=== PATIENT | female | born 1970 | race Caucasian/White ===

== ENCOUNTER 2019-03-04 21:15 | Observation (INO) | payer OTHER ==
[~2019-03-04] VITALS: Ht 167.6 cm; Wt 94.5 kg
--- NOTE | 2019-03-04 21:35 | PHYS DOC ---
Past History Past Medical History: Other Past Surgical History: No Surgical History Alcohol Use: Occasionally Drug Use: None Adult General Chief Complaint Chief Complaint: SHORTNESS OF BREATH HPI HPI Patient is a 48-year-old female presenting with shortness of breath with minimal exertion over the last week tonight she was sitting after dinner had sudden onset of chest pressure also burning sensation center of the chest radiated to the shoulder blades and also down the left arm. The pain is better but she still feel short of breath especially with minimal exertion. She is worried because her dad had a heart attack at age 51. She denies previous history of venous thromboembolic disease. 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 she says she thinks she has stress test about 4 years ago Review of Systems Review of Systems Constitutional: Denies fever or chills [] Eyes: Denies change in visual acuity, redness, or eye pain [] Mild cough GI: She did have nausea with the pain earlier : Denies dysuria or hematuria [] Musculoskeletal: Denies back pain or joint pain [] Integument: Denies rash or skin lesions [] Neurologic: Denies headache, focal weakness or sensory changes [] Endocrine: Denies polyuria or polydipsia [] All other systems were reviewed and found to be within normal limits, except as documented in this note. Allergies Allergies Allergies Coded Allergies Type Severity Reaction Last Updated Verified No Known Drug Allergies 01/31/15 No Physical Exam Physical Exam Constitutional: Well developed, well nourished, no acute distress, non-toxic appearance. [] HENT: Normocephalic, atraumatic, bilateral external ears normal, oropharynx moist, no oral exudates, nose normal. [] Eyes: PERRLA, EOMI, conjunctiva normal, no discharge. [] Neck: Normal range of motion, no tenderness, supple, no stridor. [] Cardiovascular:Heart rate regular rhythm, no murmur [] Lungs & Thorax: Bilateral breath sounds clear to auscultation [] Abdomen: Bowel sounds normal, soft, no tenderness, no masses, no pulsatile masses. [] Skin: Warm, dry, no erythema, no rash. [] Back: No tenderness, no CVA tenderness. [] Extremities: No tenderness, no cyanosis, no clubbing, ROM intact, no edema. [] Neurologic: Alert and oriented X 3, normal motor function, normal sensory function, no focal deficits noted. [] Psychologic: Affect normal, judgement normal, mood normal. [] EKG EKG EKG shows a normal sinus rhythm with a rate of 90 QTC 454 no ischemia no STEMI interpreted by me time of encounter[] Radiology/Procedures Radiology/Procedures [] Impressions: IMPRESSION: No pulmonary embolus identified within the main, lobar or proximal segmental pulmonary arteries. Limitations as described above. Exposure: One or more of the following in the visualized dose reduction techniques were utilized for this examination: 1. Automated exposure control 2. Adjustment of the MA and/or KV according to patient size 3. Use of iterative of reconstructive technique Electronically signed by: Elham Paris MD (03/04/2019 11:14 PM) [facility] DICTATED AND SIGNED BY: ELHAM PARIS MD DATE: 03/04/19 [id number] CC: LUI MAIER; SWETHA AGOSTO MD ~ Course & Med Decision Making Course & Med Decision Making Pertinent Labs and Imaging studies reviewed. (See chart for details) []Heart score is a 4 Overall story is somewhat concerning however patient is young and has a risk factor of family history. As well as obesity. Differential would include PE so we'll start with a d-dimer --> ct chest no pe seen see final report I talked to the patient about options including admission overnight for observation and stress testing versus close outpatient follow-up she prefers the former which I think is reasonable given the heart score. admit to xochitl serial troponins overnight aspirin in the er. no chest pain while here. Dragon Disclaimer Dragon Disclaimer This electronic medical record was generated, in whole or in part, using a voice recognition dictation system. Departure Departure: Impression: Primary Impression: Chest pain Disposition: ADMITTED INPATIENT Admitting Physician: Birgit Solorio Condition: STABLE Referrals: NON,STAFF (PCP) SWETHA AGOSTO MD Mar 04, 2019 21:35
[2019-03-04] MEDS ORDERED: ASPIRIN 81 MG TAB.CHEW PO ONE (21:45)
[2019-03-04 21:53] LABS: BASO # 0.1 x10^3/uL (0.0-0.2); BASO % 1 % (0-3); EOS # 0.2 x10^3/uL (0.0-0.7); EOS % 2 % (0-3); HEMOGLOBIN 10.4 g/dL (12.0-15.5); LYMPH % 30 % (24-48); MEAN CORPUSCULAR HEMOGLOBIN 26 pg (25-35); MEAN CORPUSCULAR HGB CONC 32 g/dL (31-37); MEAN CORPUSCULAR VOLUME 81 fL (79-100); MONO # 0.7 x10^3/uL (0.0-1.1); MONO % 7 % (0-9); NEUT # 5.9 x10^3uL (1.8-7.7); NEUT % 60 % (31-73); PLATELET COUNT 391 x10^3/uL (140-400); RED BLOOD COUNT 4.07 x10^6/uL (3.50-5.40); RED CELL DISTRIBUTION WIDTH 16.3 % (11.5-14.5); WHITE BLOOD COUNT 9.9 x10^3/uL (4.0-11.0)
--- NOTE | 2019-03-04 21:53 | EKG ---
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
[2019-03-04 22:00] LABS: CALCIUM 8.8 mg/dL (8.5-10.1); CREATININE 0.7 mg/dL (0.6-1.0); GFR 90.1; POTASSIUM 4.1 mmol/L (3.5-5.1)
[2019-03-04 22:09] LABS: ALBUMIN 3.7 g/dL (3.4-5.0); TOTAL BILIRUBIN 0.2 mg/dL (0.2-1.0); TOTAL PROTEIN 7.5 g/dL (6.4-8.2)
[2019-03-04] MEDS ORDERED: CONTRAST GIVEN MC PRN (22:45)
[2019-03-04] MEDS: NITROGLYCERIN SUBLINGUAL 0.4 MG BOTTLE OF 25. SL PRN (22:50)
[2019-03-04] MEDS ORDERED: IOHEXOL 350 MG/ML 100 ML VIAL. IV ONE (23:00)
--- NOTE | 2019-03-04 23:01 | RAD ---
Study: CHEST AP ONLY Indication: Shortness of breath. Comparison: 01/31/2015 Findings: Unremarkable cardiomediastinal silhouette and cesar. No lobar infiltrate, pleural effusion or pneumothorax. Potential prior distal clavicular resection/subacromial decompression on the right. No acute osseous abnormality. Impression: No acute radiographic abnormality of the chest. Electronically signed by: RAJIV SANTIAGO MD (03/04/2019 10:58 PM) [facility]
--- NOTE | 2019-03-04 23:17 | RAD ---
Exam: CT of chest with contrast INDICATION: Chest pain, short of air TECHNIQUE: Sequential axial images through the chest obtained following the administration of 100 mL of Omni 350 IV contrast. Sagittal and coronal reformatted images were reconstructed from the axial data and reviewed. 3-D reformatted images were reconstructed from the axial data and reviewed. Comparisons: None FINDINGS: Visualized portions of the thyroid are unremarkable. No enlarged mediastinal lymph nodes. Heart size is normal. No pericardial effusion. Thoracic aorta has a normal course and caliber. Pulmonary artery is not enlarged. No pulmonary embolus identified within the main, lobar or proximal segmental pulmonary arteries. Evaluation of the distal arteries is limited secondary to contrast bolus timing. Airways are patent. No consolidation or pneumothorax. No suspicious lung nodules are identified. No pleural effusion or thickening. Visualized upper abdomen is unremarkable. No suspicious osseous lesions or acute fractures. IMPRESSION: No pulmonary embolus identified within the main, lobar or proximal segmental pulmonary arteries. Limitations as described above. Exposure: One or more of the following in the visualized dose reduction techniques were utilized for this examination: 1. Automated exposure control 2. Adjustment of the MA and/or KV according to patient size 3. Use of iterative of reconstructive technique Electronically signed by: Elham Eddy MD (03/04/2019 11:14 PM) [facility]
[2019-03-05 00:33] VITALS: BP 116/76
--- NOTE | 2019-03-05 01:19 | NUR ---
The patient, MARICHUY REIS, 48 y/o, F admitted by DAMIAN SINHA MD, was given written information regarding hospital policies, unit procedures and contact persons. Valuables were checked and noted. PT presented to the ER with complaints of chest pain. PT had been having SOB x1 week, chest pain since dinner on DOA. PT has strong paternal FH of cardiac problems. PT admitted for rule out. PT transported via EMS, walked to bed safely. present at time of admission. PT oriented to unit. Reviewed with PT and her PMH, PSH, SH, FH and medications. PT states she is only on Synthroid at this time. 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
[2019-03-05] MEDS ORDERED: LEVO200T PO (01:28)
[2019-03-05 06:15] VITALS: BP 95/63
[2019-03-05] MEDS ORDERED: LEVOTHYROXINE 100 MCG TABLET PO SCH (08:00)
--- NOTE | 2019-03-05 08:22 | PDOC2 ---
CARDIAC CONSULT DATE OF CONSULT Date Of Consult DATE: 03/05/19 TIME: 08:20 REASON FOR CONSULT Reason for Consult Chest pain REFERRING PHYSICIAN Referring Physician Dr. Solorio SOURCE Source: Chart review, Patient HPI History of Present Illness This is a 48 yo female who presented secondary to shortness of breath and chest pain. Patient reports she has been experiencing shortness of breath with exertion for the last week. Last night after dinner, began having pressure in her central chest. Initially felt like it was GERD so she took Tums, which did not improved the pain. Started having pain in her upper back and down her left arm. [place] slightly nauseated. Not specifically short of breath with the pain. No dizziness, diaphoresis, or palpitations. Pain persisted so she decided to come to the ED for further evaluation and treatment. Pain relieved with nitro in ED. A couple of days ago, started having hives in her hands and mild swelling in her hands and feet. Hives have resolved. No new products that she can think of. Has a history of GERD. Started taking omeprazole about 3 months which resolved her symptoms. She discontinued taking this about 3-4 weeks ago. Also reports significantly increased stress here recently. 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 PAST MEDICAL HISTORY GI: GERD Heme/Onc: Cancer (thyroid ) Psych: Anxiety, Depression PAST SURGICAL HISTORY Past Surgical History: Other (thyroidectomy, right shoulder surgery, cholecystectomy, breast augmentation) FAMILY HISTORY Family History: Coronary Artery Disease, High Cholestrol SOCIAL HISTORY Smoke: No ALCOHOL: none Drugs: None Lives: with Family CURRENT MEDICATIONS Current Medications Current Medications Aspirin (Children'S Aspirin) 324 mg 1X ONCE PO Last administered on 03/04/19at 21:40; Start 03/04/19 at 21:45; Stop 03/04/19 at 21:46; Status DC Nitroglycerin (Nitrostat) 0.4 mg PRN Q5MIN PRN SL CHEST PAIN Last administered on 03/04/19at 22:50; Start 03/04/19 at 22:30; Stop 03/05/19 at 22:29 Iohexol (Omnipaque 350 Mg/ml) 100 ml 1X ONCE IV Last administered on 03/04/19at 22:53; Start 03/04/19 at 23:00; Stop 03/04/19 at 23:01; Status DC Info (Do NOT chart on this entry -- for MONITORING) 1 each PRN DAILY PRN MC SEE COMMENTS; Start 03/04/19 at 22:45; Stop 03/06/19 at 22:44 Levothyroxine Sodium (Synthroid) 200 mcg DAILY06 PO Last administered on 03/05/19at 08:18; Start 03/05/19 at 08:00 Active Scripts Active Reported Synthroid (Levothyroxine Sodium) 200 Mcg Tablet 200 Mcg PO DAILY06 ALLERGIES Allergies: Coded Allergies: No Known Drug Allergies (Unverified , 01/31/15) ROS Review of Systems 14 point ROS conducted with pertinent positives noted above in HPI PHYSICAL EXAM General: Alert, Oriented X3, Cooperative, No acute distress HEENT: Atraumatic, Mucous membr. moist/pink Lungs: Clear to auscultation, Normal air movement Heart: Regular rate, Normal S1, Normal S2, No murmurs Abdomen: Soft, No tenderness Extremities: No edema, Normal pulses Skin: No rashes, No breakdown Neuro: Normal speech, Cranial nerves 3-12 NL Psych/Mental Status: Mental status NL, Mood NL MUSCULOSKELETAL: Osteoarthritic changes both hands VITALS Vital Signs Vital Signs Date Time Temp Pulse Resp B/P (MAP) Pulse Ox O2 Delivery O2 Flow Rate FiO2 03/05/19 06:15 98.0 72 18 95/63 (74) 97 Room Air LABS LABS Laboratory Tests Test 03/04/19 21:20 03/04/19 21:21 03/05/19 00:55 03/05/19 04:30 White Blood Count 9.9 x10^3/uL (4.0-11.0) Red Blood Count 4.07 x10^6/uL (3.50-5.40) Hemoglobin 10.4 g/dL (12.0-15.5) Hematocrit 33.0 % (36.0-47.0) Mean Corpuscular Volume 81 fL (79-100) Mean Corpuscular Hemoglobin 26 pg (25-35) Mean Corpuscular Hemoglobin Concent 32 g/dL (31-37) Red Cell Distribution Width 16.3 % (11.5-14.5) Platelet Count 391 x10^3/uL (140-400) Neutrophils (%) (Auto) 60 % (31-73) Lymphocytes (%) (Auto) 30 % (24-48) Monocytes (%) (Auto) 7 % (0-9) Eosinophils (%) (Auto) 2 % (0-3) Basophils (%) (Auto) 1 % (0-3) Neutrophils # (Auto) 5.9 x10^3uL (1.8-7.7) Lymphocytes # (Auto) 3.0 x10^3/uL (1.0-4.8) Monocytes # (Auto) 0.7 x10^3/uL (0.0-1.1) Eosinophils # (Auto) 0.2 x10^3/uL (0.0-0.7) Basophils # (Auto) 0.1 x10^3/uL (0.0-0.2) D-Dimer (Zulema) 0.61 mg/L (0.00-0.50) Sodium Level 140 mmol/L (136-145) Potassium Level 4.1 mmol/L (3.5-5.1) Chloride Level 102 mmol/L (98-107) Carbon Dioxide Level 27 mmol/L (21-32) Anion Gap 11 (6-14) Blood Urea Nitrogen 14 mg/dL (7-20) Creatinine 0.7 mg/dL (0.6-1.0) Estimated GFR (Cockcroft-Gault) 90.1 BUN/Creatinine Ratio 20 (6-20) Glucose Level 88 mg/dL (70-99) Calcium Level 8.8 mg/dL (8.5-10.1) Total Bilirubin 0.2 mg/dL (0.2-1.0) Aspartate Amino Transf (AST/SGOT) 23 U/L (15-37) Alanine Aminotransferase (ALT/SGPT) 31 U/L (14-59) Alkaline Phosphatase 71 U/L (46-116) Troponin I Quantitative < 0.017 ng/mL (0-0.055) < 0.017 ng/mL (0-0.055) < 0.017 ng/mL (0-0.055) FQ-Mvd-I-Type Natriuretic Peptide 42 pg/mL (0-124) Total Protein 7.5 g/dL (6.4-8.2) Albumin 3.7 g/dL (3.4-5.0) Albumin/Globulin Ratio 1.0 (1.0-1.7) Maternal Serum HCG Beta Subunit < 1 mIU/mL (0-6) ASSESSMENT/PLAN Assessment/Plan 1. Chest pain, mixed features. AMI ruled out. EKG without significant acute changes. Possible GI in nature 2. GERD; previously taking omeprazole, but discontinued about a month ago. 3. Thyroid cancer; s/p thyroidectomy 4. Anxiety, depression. Reports significant increased life stressors recently 5. Family h/o premature CAD Recommendations Lipids, TSH ASA PPI Echo to assess LV systolic function Will arrange for outpatient stress test and follow up 04/15/19 at 1:30pm at [facility] location. VIOLETTA WILLARD APRN Mar 05, 2019 08:22
[2019-03-05] MEDS ORDERED: ASPIRIN ENTERIC COATED 81 MG TABLET.DR. PO SCH (09:00)
[2019-03-05] MEDS: NITROGLYCERIN SUBLINGUAL 0.4 MG BOTTLE OF 25. SL PRN (10:01)
[2019-03-05 10:06] VITALS: BP 129/81
--- NOTE | 2019-03-05 10:23 | NUR ---
Pt c/o chest pain 09/27 spreading to "in between shoulder blades". Pain relieved with 1 dose of sublingual nitroglycerin, pt refused another dose. MD called; orders for stat repeat EKG and stat repeat troponin ordered. Vital signs stable at this time.
[2019-03-05] MEDS ORDERED: ONDANSETRON PF 4 MG/2 ML VIAL. IVP PRN (10:30)
--- NOTE | 2019-03-05 10:49 | NUR ---
Pt now reporting pain only in shoulder blades at 04/27. PRN medicated for nausea with relief noted. Pt resting in bed, spouse at bedside.
--- NOTE | 2019-03-05 13:36 | EKG ---
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 (Measurements might be questionable) RI6.02 Compared to ECG 04/17/2008 17:08:16 Sinus rhythm no longer present
[2019-03-05 14:29] VITALS: BP 106/71
--- NOTE | 2019-03-05 18:12 | CARD ---
MR#: [id number] Date of Study: 03/05/2019 Ordering Physician: VIOLETTA WILLARD, Referring Physician: VIOLETTA WILLARD, Tech: Madina Grover GUY APPROVED REPORT EXAM: Two-dimensional and M-mode echocardiogram with Doppler and color Doppler. Other Information Quality : FairHR: 67bpm Rhythm : NSR INDICATION Chest Pain 2D DIMENSIONS Left Atrium(2D)3.8 (1.6-4.0cm)IVSd1.0 (0.7-1.1cm) Aortic Root(2D)2.4 (2.0-3.7cm)LVDd4.8 (3.9-5.9cm) LVOT Diameter2.3 (1.8-2.4cm)PWd0.9 (0.7-1.1cm) LVDs2.9 (2.5-4.0cm)FS (%) 40.2 % SV75.4 ml Aortic Valve AoV Peak Jimmy.129.3cm/sAoV VTI22.9cm AO Peak GR.6.7mmHgLVOT Peak Jimmy.109.4cm/s LVOT VTI 20.98cmAO Mean GR.4mmHg REJI (VMAX)3.63vh8OYC (VTI)3.69cm2 Mitral Valve MV E Exovizrs42.0cm/sMV DECEL [id number] MV A Mqvlbnuu49.4cm/sE/A Ratio1.1 MV A [id number] Tricuspid Valve TR P. Uzedczxp221bw/sTR Peak Gr.9mmHg Pulmonary Vein S1 Cddktood19.9cm/sD2 Pxujcqwt93.1cm/s LEFT VENTRICLE The left ventricle is normal size. There is normal left ventricular wall thickness. The left ventricu lar systolic function is normal and the ejection fraction is within normal range. Ventricular ejectio n fraction is 60-65% There is normal LV segmental wall motion. No left ventricle thrombus noted on th is study. There is no ventricular septal defect visualized. There is no left ventricular aneurysm. RIGHT VENTRICLE The right ventricle is normal size. The right ventricular systolic function is normal. ATRIA The left atrium size is normal. The right atrium size is normal. The interatrial septum is intact wit h no evidence for an atrial septal defect or patent foramen ovale as noted on 2-D or Doppler imaging. AORTIC VALVE The aortic valve is normal in structure and function. Doppler and Color Flow revealed no significant aortic regurgitation. There is no significant aortic valvular stenosis. There is no aortic valvular v egetation. MITRAL VALVE The mitral valve is normal in structure and function. There is no evidence of mitral valve prolapse. There is no mitral valve stenosis. Doppler and Color Flow revealed no mitral valve regurgitation note d. TRICUSPID VALVE The tricuspid valve is normal in structure and function. Doppler and Color Flow revealed trace tricus pid regurgitation. There is no tricuspid valve prolapse or vegetation. There is no tricuspid valve st enosis. PULMONIC VALVE The pulmonary valve is normal in structure and function. Doppler and Color Flow revealed mild pulmoni c valvular regurgitation. There is no pulmonic valvular stenosis. GREAT VESSELS The aortic root is normal in size. The IVC is normal in size and collapses >50% with inspiration. PERICARDIAL EFFUSION There is no pleural effusion. There is no evidence of significant pericardial effusion. Critical Notification Critical Value: No <Conclusion> The left ventricle is normal size. The left ventricular systolic function is normal and the ejection fraction is within normal range. Ventricular ejection fraction is 60-65% Doppler and Color Flow revealed no significant aortic regurgitation. There is no significant aortic valvular stenosis. Doppler and Color Flow revealed no mitral valve regurgitation noted. Doppler and Color Flow revealed trace tricuspid regurgitation. Signed by : Luis Alcantara MD Electronically Approved : 03/05/2019 18:11:31
--- NOTE | 2019-03-05 18:45 | NUR ---
Pt discharged home with spouse. VSS. NAD. Denies CP at this time. Pt ambulated off unit. Discharge instructions and materials reviewed with patient. Questions answered. PIV removed without complication. All belongings accounted for. No falls or injury reported.
--- NOTE | 2019-03-05 19:05 | HP ---
ADMIT DATE: 03/04/2019 HISTORY OF PRESENT ILLNESS: The patient is a 48-year-old female patient who came to the Emergency Room complaining of shortness of breath on minimal exertion over the last week and last night, she was sitting after dinner had sudden onset of chest pressure also burning sensation in the center of her chest radiating to the shoulder blades and also down to her left arm. The pain is better, by the time she arrived, she still have shortness of breath, especially with minimal exertion. She is worried because she had a heart attack at the age of 53. She denied any history of venous thromboembolic disease. Denied any nausea or vomiting. Did complain of diaphoresis. Her pain started from around 6:45 to around 10:00. She does have a history of thyroid cancer and today on levothyroxine. Denies any other risk factors for premature coronary artery disease. Her past medical history is significant for hypothyroidism. She was extensively evaluated in the Emergency Room. Her EKG showed that she was in sinus rhythm with a rate of 90 beats per minute with corrected QT interval of 454. No ischemia, no ST segment elevation. Her D-dimer was high and her CT angio showed no pulmonary embolus identified within the main lobe or proximal or segmental pulmonary arteries. Her first set of cardiac enzyme was less than 0.017. The patient was admitted to do 2 more sets of cardiac enzyme, to check her fasting lipid profile and to consult the offset press assistant. PAST MEDICAL HISTORY: Significant for hypothyroidism, thyroid cancer and rotator cuff tear. PAST SURGICAL HISTORY: Significant for cholecystectomy, thyroidectomy and right shoulder rotator cuff repair. ALLERGIES: She has no known drug allergies. MEDICATIONS: She is currently on following medications. She is on levothyroxine sodium 200 mcg once a day. She probably has also gastroesophageal reflux disease and she has a prescription for omeprazole that she does not take. Other medications include trazodone and Klonopin. FAMILY HISTORY: She has 3 brothers, all older and her oldest brother has hypertension, has no sisters. Her father at age of 79, was diagnosed first heart attack at age of 51. The second was 60, has had also a ruptured abdominal aortic aneurysm and underwent coronary artery bypass graft surgery. Her mother has survived thyroid cancer and she is still alive at age of 82. SOCIAL HISTORY: She is , has 1 son. She never smoked. She drinks hard liquor almost daily. She takes Gin and Tonic and Evelia does not drink any beer. 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 REVIEW OF SYSTEMS: Unremarkable. PHYSICAL EXAMINATION: GENERAL: On arrival to the Emergency Room, she looked well and was clearly in no apparent respiratory distress. No pallor, jaundice, cyanosis or thyromegaly. No jugular venous distention. No limb edema. VITAL SIGNS: Her heart rate was 97, blood pressure 127/79, temperature was 98.1, respiratory rate was 20, and oxygen saturation was 96%. HEAD, EYES, EARS, NOSE AND THROAT: Showed normocephalic, atraumatic. NECK: Supple. HEART: Showed normal first and second heart sounds with no gallop or murmur. CHEST: Clear to auscultation. No crepitation or rhonchi. ABDOMEN: Distended, soft, nontender. NEUROLOGIC: She was awake, alert, responding appropriately. All cranial nerves intact. EXTREMITIES: She moves extremities without difficulty. She ambulates without assistance or assistive devices. LABORATORY DATA: Showed a white cell count 9900, hemoglobin 10.4, hematocrit 33, MCV 81 and platelet count of 291,000. Her D-dimer was high at 0.61. Her chemistry showed that her serum sodium 140, potassium 4.1, chloride 102, bicarbonate 27, anion gap of 11, BUN 14, creatinine 0.7, estimated GFR was 90 mL per minute. Her glucose was 88, calcium was 8.8. Total bilirubin, AST, ALT, alkaline phosphatase were normal. Total protein was 7.5, albumin 3.7. Her first set of cardiac enzymes showed troponin to be less than 0.017. She had a chest x-ray, which showed no acute radiographic abnormality of the chest given her elevated D-dimer and chest pain. She had a CT angio of the chest, which basically showed that the visualized portion of the thyroid unremarkable. No enlarged mediastinal lymph node. The heart size is normal, no pericardial effusion. Thoracic aorta has a normal course and caliber. Pulmonary arteries not enlarged. No pulmonary embolus identified within the main lobar or proximal segmental pulmonary arteries. Evaluation of distal arteries is limited secondary to contrast bolus timing. Airways are patent. No consolidation, pneumothorax. No suspicious lung nodules identified. No pleural effusion or thickening. The visualized upper abdomen is unremarkable. No suspicious osseous lesions or acute fracture and the impression is that the patient has no pulmonary emboli. The patient was admitted to do 2 more sets of cardiac enzymes, check her fasting lipid profile and consult the offset press assistant. DAMIAN SINHA MD DR: FAUSTINA/antoni JOB#: [id number] / [id number]
--- NOTE | 2019-03-05 19:47 | DS ---
DATE OF DISCHARGE: 03/05/2019 HISTORY OF PRESENT ILLNESS: The patient is a 48-year-old female patient who came with a complaint of chest pain, shortness of breath. Pain was described as burning sensation in the center of her chest radiating back to the shoulder blade and left arm associated with shortness of breath and diaphoresis, but no nausea or vomiting. She was admitted, has 3 sets of cardiac enzymes that ruled out myocardial infarction, has had also fasting lipid profile, which showed her serum triglycerides were 44, total cholesterol was 201, LDL cholesterol 122, VLDL was 8, and HDL cholesterol was 71, cholesterol to HDL cholesterol ratio was 2. Had an echocardiogram, which showed that her left ventricular size is normal. Left ventricular systolic function is normal and ejection fraction is within normal range. Ventricular ejection fraction is 60-65%. Doppler and color flow revealed no significant aortic regurgitation. There is no significant aortic valvular stenosis, no mitral valve regurgitation and trace tricuspid regurgitation. She was seen by the Cardiology team and the plan was to discharge her home with arrangement for an outpatient stress test. She has actually an appointment on 04/15/2019 at 1:30 p.m. at [facility] location. Meanwhile, she should continue on aspirin and proton pump inhibitor. FINAL DISCHARGE DIAGNOSES: Chest pain, mixed features of acute myocardial infarction ruled out. Gastroesophageal reflux disease, thyroid cancer, status post thyroidectomy, anxiety and depression. Family history of premature coronary artery disease. DAMIAN SINHA MD DR: FAUSTINA/antoni JOB#: [id number] / [id number]
[2019-03-06] MEDS ORDERED: PANTOPRAZOLE 40 MG TABLET. PO SCH (07:30)
== END 2019-03-05 18:46 | disposition home or self-care (01) ==
LOC: ER 21:15 → INTOOBSV 22:29 → 1 SOUTH 22:29
PROVIDERS: ADMIT Internal Medicine; ATTEND Internal Medicine
DX: R07.89 Other chest pain (principal); E03.9 Hypothyroidism, unspecified; K21.9 Gastro-esophageal reflux disease without esophagitis; Z98.890 Other specified postprocedural states; Z90.49 Acquired absence of other specified parts of digestive tract
CPT/HCPCS: 36415; 71045; 71275; 80053; 80061; 83880; 84484; 84702; 85025; 85379; 93005; 93306; 96374; 99284; G0378; J2405; Q9967; G0379

== ENCOUNTER 2021-05-14 12:57 | Emergency (ER) | payer OTHER ==
[~2021-05-14] VITALS: Ht 167.6 cm; Wt 87.0 kg
[~2021-05-14 12:57] MED LIST: LEVO200T PO
[2021-05-14 13:19] VITALS: BP 143/98
[2021-05-14] MEDS ORDERED: ONDANSETRON PF 4 MG/2 ML VIAL. IV ONE ×2 (13:30→15:45)
[2021-05-14] MEDS ORDERED: IV NORMAL SALINE 1,000ML 1,000 ML IV ONE (13:30)
[2021-05-14] MEDS ORDERED: KETOROLAC 15 MG/ML VIAL. IVP ONE (13:30)
[2021-05-14] MEDS ORDERED: MORPHINE SULFATE 4 MG/ML DISP.SYRIN. IV ONE (13:30)
--- NOTE | 2021-05-14 13:42 | PHYS DOC ---
Past History Past Medical History: Hypothyroid Additional Past Medical Histor: thyroid cancer Past Surgical History: Cholecystectomy Additional Past Surgical Histo: breast implants, R shoulder, thyroidectomy Alcohol Use: Rarely Drug Use: None Adult General Chief Complaint Chief Complaint: BACK PAIN - NO INJURY HPI HPI Patient is a 51-year-old female presenting to the emergency department for evaluation of back pain that has been going on for 2 weeks. She says it is in the left lower back and radiates into her left inguinal region is associate with nausea and chills but no fevers vomiting diarrhea dysuria hematuria vaginal bleeding or vaginal discharge. She says she has had no bowel movement in the past week and feels constipated. She denies any bowel or bladder incontinence saddle anesthesia unilateral weakness numbness or tingling. She says the pain gets better in certain positions but does not necessarily get worse with movements of her torso but did feel worse with palpation. Patient went 2 months in clinic on Saturday and had an x-ray and a urinalysis where she had trace hematuria. She is in no acute distress with normal vital signs. Review of Systems Review of Systems Constitutional: Denies fever. + chills [] Eyes: Denies change in visual acuity, redness, or eye pain [] HENT: Denies nasal congestion or sore throat [] Respiratory: Denies cough or shortness of breath [] Cardiovascular: No additional information not addressed in HPI [] GI: Denies abdominal pain, nausea. No vomiting, bloody stools or diarrhea [] : Denies dysuria or hematuria [] Musculoskeletal: + back pain. No joint pain [] Integument: Denies rash or skin lesions [] Neurologic: Denies headache, focal weakness or sensory changes [] All other systems were reviewed and found to be within normal limits, except as documented in this note. Current Medications Current Medications Current Medications Medications (Trade) Dose Ordered Sig/Shira Start Time Stop Time Status Last Admin Dose Admin Ketorolac Tromethamine (Toradol 15mg Vial) 15 mg 1X ONCE 05/14/21 13:30 05/14/21 13:31 DC Morphine Sulfate (Morphine 4mg Syringe) 4 mg 1X ONCE 05/14/21 13:30 05/14/21 13:31 DC Ondansetron HCl (Zofran) 4 mg 1X ONCE 05/14/21 13:30 05/14/21 13:31 DC Sodium Chloride 1,000 ml @ 1,000 mls/hr 1X ONCE 05/14/21 13:30 05/14/21 14:29 Allergies Allergies Allergies Coded Allergies Type Severity Reaction Last Updated Verified No Known Drug Allergies 05/14/21 No Physical Exam Physical Exam Constitutional: Well developed, well nourished, no acute distress, non-toxic appearance. [] HENT: Normocephalic, atraumatic, bilateral external ears normal, oropharynx moist, no oral exudates, nose normal. [] Eyes: PERRLA, EOMI, conjunctiva normal, no discharge. [] Neck: Normal range of motion, no tenderness, supple, no stridor. [] Cardiovascular:Heart rate regular rhythm, no murmur [] Lungs & Thorax: Bilateral breath sounds clear to auscultation [] Abdomen: Bowel sounds normal, soft, no tenderness, no masses, no pulsatile masses. [] Skin: Warm, dry, no erythema, no rash. [] Back: Positive left lumbar tenderness to palpation. Extremities: No tenderness, no cyanosis, no clubbing, ROM intact, no edema. [] Neurologic: Alert and oriented X 3, normal motor function, normal sensory function, no focal deficits noted. [] Current Patient Data Vital Signs Vital Signs Date Time Temp Pulse Resp B/P (MAP) Pulse Ox O2 Delivery O2 Flow Rate FiO2 05/14/21 13:19 98.1 20 143/98 (113) 100 Room Air EKG EKG [] Radiology/Procedures Radiology/Procedures [] Heart Score C/O Chest Pain: No Risk Factors: Risk Factors: DM, Current or recent (<one month) smoker, HTN, HLP, family history of CAD, obesity. Risk Scores: Risk Factors: DM, Current or recent (<one month) smoker, HTN, HLP, family history of CAD, obesity. Course & Med Decision Making Course & Med Decision Making I will check labs and imaging treat symptoms and reassess. No acute findings on CT scan I did discuss insulin findings including the possible ovarian cyst. She is not hurting on the side and she is not having any nausea vomiting I do not suspect torsion. Patient has normal urinalysis and laboratory evaluation. She says she is continuing to have severe pain and nausea in the emergency department and I told her I have no definitive cause to her symptoms at this time and given she is having intractable pain and nausea I recommended admission to the hospital for further pain management and consultation. I told her she may benefit from GI and [employer] consultation. Patient refused stating that she feels that she does not want to stay in the hospital and rather do outpatient evaluation and staying in the hospital. Both the patient and appear frustrated with me that I do not have a definitive diagnosis I told him that I was sorry but I did not find any acute pathology at this time but I am happy to admit him for pain control and further consultations but they again refused. Patient will be discharged in stable condition at her request with supportive medications and told she can return anytime with any new or worsening symptoms. Dragon Disclaimer Dragon Disclaimer This electronic medical record was generated, in whole or in part, using a voice recognition dictation system. Departure Departure: Impression: Primary Impression: Abdominal pain Additional Impressions: Nausea alone Ovarian cyst Lumbar back pain Disposition: HOME / SELF CARE / HOMELESS Condition: STABLE Referrals: QUINTON LONDON APRN (PCP) Patient Instructions: Abdominal Pain (Nonspecific) Scripts Lidocaine (Lidocaine PATCH ) 1 Each Adh..patch 1 EACH TP DAILY for FOR LOCAL PAIN for 7 Days, #7 PATCH REMOVE AFTER 12 HOURS Prov: FÉLIX MANNING DO 05/14/21 Ibuprofen (Ibu) 600 Mg Tablet 1 TAB PO Q6HRS for 7 Days, #28 TAB 0 Refills Prov: FÉLIX MANNING DO 05/14/21 Ondansetron (ONDANSETRON ODT) 4 Mg Tab.rapdis 1 TAB PO PRN Q6-8HRS, #16 TAB Prov: FÉLIX MANNING DO 05/14/21 Hydrocodone Bit/Acetaminophen (HYDROCODONE-APAP 5-325 ) 1 Each Tablet 1 TAB PO PRN Q6HRS PRN for PAIN, #14 TAB 0 Refills Prov: FÉLIX MANNING DO 05/14/21 Problem Qualifiers Primary Impression: Abdominal pain Abdominal location: left lower quadrant Qualified Codes: R10.32 - Left lower quadrant pain FÉLIX MANNING DO May 14, 2021 13:42
--- NOTE | 2021-05-14 13:59 | RAD ---
CT abdomen pelvis without contrast dated 05/14/2021. COMPARISON: None. Clinical data indication: Left flank pain. TECHNIQUE: Contiguous axial imaging the abdomen pelvis performed without the administration of IV or oral contra st. One or more of the following individualized dose reduction techniques were utilized for this examinat ion: 1. Automated exposure control 2. Adjustment of the mA and/or kV according to patient size 3. Use of iterative reconstruction technique. FINDINGS: Limited images of lung bases are clear. Heart size is within normal limits. No pleural or pericardial effusion. Solid abdominal viscera not well evaluated in the absence of contrast material. No apparent attenuati on abnormality of the liver or spleen. Pancreas, adrenal glands and kidneys are unremarkable. No ston e or hydronephrosis. Gallbladder surgically absent. Unopacified GI tract normal in caliber and contour. No bowel wall thickening. No inflammatory strandi ng in the mesentery. The appendix is normal in caliber. No inflammatory changes in the right lower qu adrant. No ascites or lymphadenopathy. Images of the pelvis show mildly distended urinary bladder. There is a 2.2 cm right ovarian cyst. No free fluid or pelvic adenopathy. Bone windows show no acute findings. IMPRESSION: 1. No acute abnormality of abdomen or pelvis. No renal stone or hydronephrosis. 2. Small right ovarian cyst versus dominant follicle. 3. Status post cholecystectomy. Electronically signed by: Ta Jolly MD (05/14/2021 1:57 PM) [id number]
[2021-05-14 14:34] LABS: BASO # 0.1 x10^3/uL (0.0-0.2); BASO % 1 % (0-3); EOS # 0.2 x10^3/uL (0.0-0.7); EOS % 3 % (0-3); HEMATOCRIT 38.5 % (36.0-47.0); LYMPH # 1.8 x10^3/uL (1.0-4.8); LYMPH % 34 % (24-48); MEAN CORPUSCULAR HEMOGLOBIN 31 pg (25-35); MEAN CORPUSCULAR HGB CONC 34 g/dL (31-37); MEAN CORPUSCULAR VOLUME 91 fL (79-100); MONO # 0.4 x10^3/uL (0.0-1.1); MONO % 7 % (0-9); NEUT # 2.9 x10^3uL (1.8-7.7); NEUT % 55 % (31-73); PLATELET COUNT 337 x10^3/uL (140-400); RED BLOOD COUNT 4.22 x10^6/uL (3.50-5.40); RED CELL DISTRIBUTION WIDTH 13.1 % (11.5-14.5); WHITE BLOOD COUNT 5.3 x10^3/uL (4.0-11.0)
[2021-05-14 14:42] LABS: CLARITY,URINE CLEAR; COLOR,URINE YELLOW; GLUCOSE,URINE NEG (NEG); NITRITE,URINE NEG (NEG); UROBILINOGEN,URINE 0.2 mg/dL (0.2 mg/dL)
[2021-05-14 14:43] LABS: BACTERIA,URINE 0 /HPF (0-FEW); RBC,URINE OCC /HPF (0-2); SQUAMOUS EPITHELIAL CELL,UR FEW /LPF
[2021-05-14 15:09] LABS: CALCIUM 8.8 mg/dL (8.5-10.1); CREATININE 0.7 mg/dL (0.6-1.0); GFR 88.9; POTASSIUM 3.9 mmol/L (3.5-5.1)
[2021-05-14 15:15] LABS: ALBUMIN 3.7 g/dL (3.4-5.0); TOTAL BILIRUBIN 0.4 mg/dL (0.2-1.0); TOTAL PROTEIN 7.3 g/dL (6.4-8.2)
[2021-05-14] MEDS ORDERED: DEXAMETHASONE SOD PHOS 4 MG/ML VIAL. IVP ONE (15:45)
[2021-05-14] MEDS ORDERED: HYDROmorphone PF 1 MG/ML DISP.SYRIN IVP ONE (15:45)
[2021-05-14] MEDS ORDERED: IBUP-571 PO (16:13)
[2021-05-14] MEDS ORDERED: ONDA4TAB12 PO (16:13)
[2021-05-14] MEDS ORDERED: HYDR-2155 PO (16:13)
[2021-05-14] MEDS ORDERED: LIDO700A21 TP (16:13)
== END 2021-05-14 16:59 | disposition home or self-care (01) ==
LOC: ER 13:03
DX: N83.201 Unspecified ovarian cyst, right side (principal); R10.32 Left lower quadrant pain; M54.59 Other low back pain; E03.9 Hypothyroidism, unspecified; Z90.49 Acquired absence of other specified parts of digestive tract
CPT/HCPCS: 36415; 74176; 80053; 81001; 81025; 83690; 85025; 87086; 96361; 96374; 96375; 99284; J1885; J2270; J2405; J7030